=== PATIENT | female | born 1985 | race Caucasian/White ===

== ENCOUNTER 2024-12-25 18:36 | Emergency (ER) | payer MEDICAID, OTHER, SELFPAY ==
--- NOTE | ~2024-12-25 | US_ITS ---
CLINICAL HISTORY: LUQ pain, pls eval for splenomegaly Ultrasound abdomen limited Comparison: None Findings: The spleen measures 12.8 cm, slightly enlarged and otherwise appears unremarkable. No free fluid adjacent to the spleen. Left kidney measures 11.9 cm in length. No hydronephrosis. Impression: 1. Mild splenomegaly and otherwise unremarkable left upper quadrant ultrasound. This document has been electronically signed by: Celena Leonard MD on 12/25/2024 22:52:06
[2024-12-25 18:39] VITALS: BP 127/88; PULSE 103; RESP 16; TEMP 36.8; O2SAT 98; BMI 28.0
--- NOTE | 2024-12-25 18:40 | ED_ITS ---
HPI - General Adult General Chief complaint: Allergic Reaction Stated complaint: allergic reaction swollen hand Time Seen by Provider: 12/25/24 20:50 History of Present Illness ED Provider: Samanta MG narrative: The patient is a 39-year-old female who says that 2 days ago she started to have fevers. Her fevers has been quite high. She says as high as 105. Starting yesterday she developed a rash that is quite itchy and which she feels is on her arms and her legs. It is most uncomfortable and itchy on her left forearm. It spares her face. She has no sore throat. She has had no runny nose. She has had no cough. No chest pain or shortness of breath. She has no recent travel history. No sick contacts. The patient also was complaining of left upper quadrant pain that has been bothering her for more than a year. At the time that the pain began she was living in [place]. She had a cholecystectomy which was done to try to address this pain but the pain remains the same despite the cholecystectomy. This seems to be a separate complaint from the fever and itchy rash. The patient grew up in [place]. She says that she did not receive all standard childhood vaccinations because her mother believes a relative who of a vaccination. She says that she has made some effort to catch up on her childhood vaccinations but she does not know exactly which vaccines she has received. Related Data Previous Rx's ?Medication ?Instructions ?Recorded acetaminophen 500 mg capsule 1,000 mg (2 x 500 mg) PO Q8H PRN 12/25/24 fever or pain #14 caps diphenhydramine HCl 25 mg capsule 25 mg PO BEDTIME PRN itching #14 12/25/24 caps ibuprofen 400 mg tablet 400 mg PO Q6H PRN pain #14 t abs 12/25/24 Allergies Allergy/AdvReac Type Severity Reaction Status Date / Time Bleach (Sodium Hypochlorite) Allergy Rash Verified 12/25/24 18:43 Review of Systems 2 Review of Systems: Yes all other systems are reviewed and are negative [facility] Social History Social History Alcohol intake: never Physical Exam ED Vital Signs: Vital Signs - 24 hr 12/25/24 18:39 12/25/24 23:32 Temperature 98.3 F 98.3 F Pulse Rate 103 H 103 H Respiratory Rate 16 16 Blood Pressure 127/88 127/88 Pulse Oximetry 98 98 Oxygen Delivery Method Room Air Room Air BMI result Body Mass Index 28.0 Const Other: The patient is awake, alert, pleasant, cooperative. She does not appear obviously toxic or acutely ill. No shortness of breath. She seemed itchy. Orientation/consciousness: patient oriented x3 HENMT Other: No lesions to the face. The skin of the face is normal. The face is symmetrical. Mucous membranes are moist. There was no enanthem. Posterior pharynx is normal. Eyes Other: Pupils are round equal, conjunctivae are clear, extraocular movements intact. No conjunctival injection. No discharge. General: appearance normal, both eyes and all related structures Neck Other: Neck is supple. No cervical adenopathy appreciated. Resp Effort & Inspection: normal respiratory effort Auscultation: clear to auscultation bilaterally Cardio Rate: regular rate Rhythm: regular rhythm Heart sounds: S1 normal heart sound present and S2 normal heart sound present GI Other: The patient reports some tenderness in the left upper quadrant with palpation. However the abdomen seems quite soft. I do not appreciate any splenomegaly on exam. Back/Spine/Pelvis Other: There is a fine wispy erythematous rash on back. Skin Other: The patient has a diffuse fine wispy erythematous rash on much of the body. This seems most pronounced on the medial aspect of the left forearm. The the rash blanches in all areas. No petechiae. She seems itchy. Neuro Other: The patient's appearance is nontoxic. General: patient oriented x3, gait normal, tone normal, moves all extremities, no focal motor deficits and CN's II-XI intact bilaterally Extrem Other: The patient has a diffuse missed be fine erythematous rash on most of her legs. On her arms she also has a similar rash but it seems more concentrated on the medial aspect of the left forearm. There was no pitting edema. No deformity. She moves all of her joints normally. Course Course Course Narrative: 12/25/241840 HENRI Willis This is a Rapid Medical Examination (RME) performed by Richard Kothari PA-C in triage. Full HPI, ROS, assessment and treatment plan per primary provider in the Main ED. Hx: 39 yo F here w/ fever x2 days, woke up with diffuse puruitic body rash today. TMAX 106F at home. took tylenol around 6 hour ago. no new meds/ abx. no new soaps/ lotions/ detergents. reports allergy to bleach - reports using this two days ago. no sore throat, N/V, abd pain, cough. no recent tick/insect bites. Plan: labs, viral/strep swabs Medications Administered Discontinued Medications Generic Name Dose Route Start Last Admin Trade Name Abel PRN Reason Stop Dose Admin Diphenhydramine HCl 50 mg 12/25/24 23:12 12/25/24 23:27 Diphenhydramine Hcl 25 Mg Capsule PO 12/25/24 23:13 50 mg ONCE ONE Administration Medical Decision Making Medical Decision Making [facility] Narrative: The patient is a 39-year-old female who presents for evaluation of a rash and a fever. The fever has been present for 2 days. The rash has been present for 1 day. She seems quite itchy. There are no associated respiratory symptoms. there are no intraoral lesions. Has what seems to be a separate complaint the patient is complaining of left upper quadrant pain that has been present for over a year. She says that she had a cholecystectomy in hopes of improving this pain but there was no change following the cholecystectomy. The cholecystectomy was done at a hospital in [place]. For the most part her abdomen seems benign. The patient has a white count with a total of 6.1. She has a lymphocytosis with some atypical lymphocytes. Monospot is negative. Viral panels are negative. My overall impression, given the itchiness of the rash, the fever, and her white count and differential, is that the patient has some kind of a viral syndrome with an associated rash. Although the patient has a an uncertain vaccination history I do not think this presentation seems suggestive of measles. She does not seem toxic at all. I think she will be appropriately treated symptomatically. To address her complaint of left upper quadrant tenderness we obtained an ultrasound that does not show any significant splenomegaly or other explanation for her pain. Given how long she has had this pain I do not think further evaluation in the emergency room if necessary today. She has a primary care doctor in the [place] area. She should return if worse. Lab Data 12/25/24 18:54 12/25/24 18:55 Labs: Lab Results 12/25/24 12/25/24 12/25/24 Range/Units 18:54 18:55 21:24 WBC 6.1 (4.8-10.8) X10*3/uL RBC 3.98 L (4.20-5.50) X10*6/uL Hgb 12.9 (12.0-16.0) g/dl Hct 36.0 L (37.0-47.0) % MCV 90.5 (80.0-98.0) fL MCH 32.4 (27.0-33.0) pg MCHC 35.8 H (31.0-35.0) g/dl RDW 11.7 (11.0-16.0) % Plt Count 165 (160-400) X10*3/uL MPV 9.0 L (9.4-12.3) fL Immature Gran % (Auto) Cancelled Neut % (Auto) Cancelled Lymph % (Auto) Cancelled [place] % (Auto) Cancelled Eos % (Auto) Cancelled Baso % (Auto) Cancelled Lymph # (Auto) Cancelled [place] # (Auto) Cancelled Eos # (Auto) Cancelled Baso # (Auto) Cancelled Abs Immat Gran (auto) Cancelled Absolute Neuts (auto) Cancelled Absolute Nucleated RBC 0.000 (0.0-0.012) X10*3/uL Nucleated RBC % (auto) 0.0 (0.0-0.2) /100WBC Neutrophils % (Manual) 20 L (45-73) % Band Neutrophils % 1 L (3-5) % Lymphocytes % (Manual) 59 H (20-40) % Atypical Lymphs % (Man) 8 H (0-6) % Monocytes % (Manual) 6 (2-11) % Eosinophils % (Manual) 5 H (0-4) % Basophils % (Manual) 1 (0-2) % Abs Neuts (Manual) 1.3 L (2.0-8.3) X10*3/uL Lymphocytes # (Manual) 3.6 (1.2-4.9) X10*3/uL Atyp Lymphs # (Manual) 0.5 x10*3/uL Monocytes # (Manual) 0.4 (0.1-1.2) X10*3/uL Eosinophils # (Manual) 0.3 (0.0-0.4) X10*3/uL Basophils # (Manual) 0.1 (0.0-0.2) X10*3/uL Platelet Estimate NORMAL (NORMAL) Plt Morphology Comment NORMAL RBC Morphology NORMAL Smear Tech's Comments MANUAL DIFF Sodium 140 (135-145) mmol/L Potassium 3.9 (3.3-5.1) mmol/L Chloride 106 (96-108) mmol/L Carbon Dioxide 25 (22-29) mmol/L Anion Gap 13 (12-20) BUN 8 L (9-16) mg/dL Creatinine 0.74 (0.5-1.4) mg/dL Estim Creat Clear Calc 105.9 Estimated GFR > 60 Random Glucose 86 (60-115) mg/dL Calcium 8.8 (8.4-10.2) mg/dL Total Bilirubin 0.4 (0.0-1.0) mg/dL AST 32 H (5-31) U/L ALT 28 (0-31) U/L Alkaline Phosphatase 91 (39-117) U/L Total Protein 7.2 (6.5-8.0) g/dL Albumin 4.3 (3.5-5.0) g/dL Beta HCG, Quant < 2 mIU/mL Respiratory Panel [place] See Note Adenovirus (Rapid PCR) Not Detected (Not Detect.) B.pert (TEM-PCR) Not Detected (Not Detect.) B.parapertussis DNA PCR Not Detected (Not Detect.) C. pneumoniae DNA (PCR) Not Detected (Not Detect.) Coronavirus OC43 (PCR) Not Detected (Not Detect.) Coronavirus HKU1 (PCR) Not Detected (Not Detect.) Coronavirus 229E (PCR) Not Detected (Not Detect.) Coronavirus NL63 (PCR) Not Detected (Not Detect.) Monoscreen Negative (Negative) Human Metapneumovir PCR Not Detected (Not Detect.) Influenza A (RT-PCR) Not Detected (Not Detect.) Influenza A (H1) PCR Not Detected (Not Detect.) Influ A (H1/09) PCR Not Detected (Not Detect.) Influenza A (H3) PCR Not Detected (Not Detect.) Influenza Type A (PCR) NEGATIVE (Negative) Influenza B (RT-PCR) Not Detected (Not Detect.) Influenza Type B (PCR) NEGATIVE (Negative) M. pneumoniae (PCR) Not Detected (Not Detect.) Parainfluenza 1 (PCR) Not Detected (Not Detect.) Parainfluenza 2 (PCR) Not Detected (Not Detect.) Parainfluenza 3 (PCR) Not Detected (Not Detect.) Parainfluenza 4 (PCR) Not Detected (Not Detect.) RSV (PCR) Not Detected (Not Detect.) RSV RNA Qual (PCR) NEGATIVE (Negative) Entero/Rhino (PCR) Not Detected (Not Detect.) SARS-CoV-2 RNA (RT-PCR) NEGATIVE Not Detected (Negative) S. pyogenes GrpA DIVYA Negative (Negative) Discharge Plan Discharge Clinical Impression: Fever, Pruritic rash, Acute viral syndrome, Chronic left upper quadrant pain Patient Disposition: Home, Self-Care Additional Instructions: I think that your fever and your itchy rash are caused by some kind of a viral illness. Your blood work is consistent with a viral illness. Antibiotics are helpful for bacterial illnesses but they are not helpful for viral illnesses. I think your fever and the rash will likely get better on their own over the next several days. I have sent prescriptions for acetaminophen (Tylenol), and ibuprofen which you may use as needed for fever. I have sent a prescription for diphenhydramine (Benadryl) which you may use as needed for itchiness. I would use this primarily at night because it can make you sleepy. Prescription has been written to take 25 mg at bedtime but you may double the dose if necessary. I do not have a good explanation for the left upper abdominal pain you has been experiencing for a long time. Your ultrasound does not show any concerning finding and your blood work is also not concerning with regard to this pain. Please contact your regular doctor in [place] tomorrow morning as well. Perhaps you can arrange a follow up appointment or possibly a telemedicine follow up. If you feel significantly worse please return to the emergency room for further evaluation. Prescriptions: New ibuprofen 400 mg tablet 400 mg PO Q6H PRN (Reason: pain) Qty: 14 0RF acetaminophen 500 mg capsule 1,000 mg PO Q8H PRN (Reason: fever or pain) Qty: 14 0RF diphenhydramine HCl 25 mg capsule 25 mg PO BEDTIME PRN (Reason: itching) Qty: 14 0RF Interventions: ED Discharge Assessment Last Done: 12/25/24 23:32 Discharge Date/Time: 12/25/24 23:32 Print Language: Luxembourgish
[2024-12-25 19:03] LABS: Hemoglobin 12.9 g/dl (12.0-16.0); Mean Corpuscular HGB Conc 35.8 g/dl (31.0-35.0); Mean Corpuscular Hemoglobin 32.4 pg (27.0-33.0); Mean Corpuscular Volume 90.5 fL (80.0-98.0); Platelet Count 165 X10*3/uL (160-400); Red Blood Count 3.98 X10*6/uL (4.20-5.50); Red Cell Distribution Width 11.7 % (11.0-16.0); White Blood Count 6.1 X10*3/uL (4.8-10.8)
[2024-12-25 19:08] LABS: IDNOW Serial# 6674DD1D; Strep A Nucleic Acid Negative (Negative)
[2024-12-25 19:17] LABS: Alanine Aminotransferase 28 U/L (0-31); Albumin Level 4.3 g/dL (3.5-5.0); Alkaline Phosphatase 91 U/L (39-117); Anion Gap 13 (12-20); Aspartate Amino Transferase 32 U/L (5-31); Bilirubin Total 0.4 mg/dL (0.0-1.0); Blood Urea Nitrogen 8 mg/dL (9-16); Calcium 8.8 mg/dL (8.4-10.2); Carbon Dioxide 25 mmol/L (22-29); Chloride 106 mmol/L (96-108); Creatinine Clr Calc Pharmacy 105.9; Estimated Glomerular Filt Rate > 60; Glucose Random 86 mg/dL (60-115); Potassium 3.9 mmol/L (3.3-5.1); Sodium 140 mmol/L (135-145); Total Protein 7.2 g/dL (6.5-8.0)
[2024-12-25 19:26] LABS: SLIDE REVIEW MANUAL DIFF
[2024-12-25 19:38] LABS: Atypical Lymph Absolute Manual 0.5 x10*3/uL; Atypical Lymphs Percent Manual 8 % (0-6); Band Neutrophils Percent 1 % (3-5); Basophils Abs Manual 0.1 X10*3/uL (0.0-0.2); Basophils Percent Manual 1 % (0-2); Eosinophils Absolute Manual 0.3 X10*3/uL (0.0-0.4); Eosinophils Percent Manual 5 % (0-4); Lymphocytes Absolute Manual 3.6 X10*3/uL (1.2-4.9); Lymphocytes Percent Manual 59 % (20-40); Monocytes Absolute Manual 0.4 X10*3/uL (0.1-1.2); Monocytes Percent Manual 6 % (2-11); Neutrophils Absolute Manual 1.3 X10*3/uL (2.0-8.3); Neutrophils Percent Manual 20 % (45-73)
[2024-12-25 19:39] LABS: Influenza A PCR NEGATIVE (Negative); Influenza B PCR NEGATIVE (Negative); Platelet Estimate NORMAL (NORMAL); Platelet Morphology Comment NORMAL; RBC Morphology NORMAL; Resp Syncy Virus RNA Qual PCR NEGATIVE (Negative); SARS COV2 PCR INHOUSE NEGATIVE (Negative)
--- NOTE | 2024-12-25 20:04 | PC.NURSE ---
Interviewed patient with county treasurer # [id number]
[2024-12-25 21:38] LABS: HCG Quantitative < 2 mIU/mL
[2024-12-25 21:46] LABS: Monotest Negative (Negative)
[2024-12-25] MEDS: diphenhydrAMINE HCL 25 MG CAPSULE 50 MG PO (23:27)
--- NOTE | 2024-12-25 23:30 | PC.NURSE ---
Took over care from YULIANA Sena, medicated per aug, reviewed discharge instruction per pt pt verbalized understanding, no sign of distress, no hive, no respiratory distress.
[2024-12-25 23:32] VITALS: BP 127/88; PULSE 103; RESP 16; TEMP 36.8; O2SAT 98
[2024-12-26 12:56] LABS: Adenovirus PCR Not Detected (Not Detect.); Bordetella parapertussis PCR Not Detected (Not Detect.); Bordetella pertussis PCR Not Detected (Not Detect.); Chlamydia pneumoniae PCR Not Detected (Not Detect.); Coronavirus 229E PCR Not Detected (Not Detect.); Coronavirus HKU1 PCR Not Detected (Not Detect.); Coronavirus NL63 PCR Not Detected (Not Detect.); Coronavirus OC43 PCR Not Detected (Not Detect.); Human metapneumovirus PCR Not Detected (Not Detect.); Influenza A H1 PCR Not Detected (Not Detect.); Influenza A H1-2009 PCR Not Detected (Not Detect.); Influenza A H3 PCR Not Detected (Not Detect.); Influenza A PCR Not Detected (Not Detect.); Influenza B PCR Not Detected (Not Detect.); Mycoplasma pneumoniae PCR Not Detected (Not Detect.); Parainfluenza 1 PCR Not Detected (Not Detect.); Parainfluenza 2 PCR Not Detected (Not Detect.); Parainfluenza 3 PCR Not Detected (Not Detect.); Parainfluenza 4 PCR Not Detected (Not Detect.); RSV PCR Not Detected (Not Detect.); Rhino/Enterovirus PCR Not Detected (Not Detect.); SARS-CoV-2 PCR Not Detected (Not Detect.)
== END 2024-12-25 23:32 | disposition home or self-care (01) ==
PROVIDERS: Physician Assistant Medical; Emergency Provider Emergency Medicine
DX: R50.9 Fever, unspecified (principal); L29.9 Pruritus, unspecified; B34.9 Viral infection, unspecified; R10.12 Left upper quadrant pain; Z03.818 Encounter for observation for suspected exposure to other biological agents ruled out; Z79.899 Other long term (current) drug therapy
CPT/HCPCS: 0241U; 36415; 76705; 80053; 84702; 85007; 85027; 86308; 87633; 87651; 99284

== ENCOUNTER → 2024-12-25 21:18 | Outpatient (BNV) | payer MEDICAID, SELFPAY | PROVIDERS: Emergency Provider Emergency Medicine; Visit Provider Specialist | DX: R16.1 Splenomegaly, not elsewhere classified (principal) | CPT/HCPCS: 76705 ==

== ENCOUNTER 2024-12-27 14:15 | Emergency (ER) | payer MEDICAID, OTHER, SELFPAY ==
--- OUTSIDE RECORDS SUMMARY | 2024-12-08 06:30 | XMS_ITS | Continuity of Care Document ---
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 Call your doctor if no results in 4 hours. Can normally cause diarrhea as needed - Active or similar sized bottle magnesium citrate oral solution chill entire contents of bottle and then drink slowly over 20 minutes as needed once for constipation. Call your doctor if no results in 4 hours. Can normally cause diarrhea as needed - Active or similar sized bottle omeprazole 20 mg capsule,delayed release take 1 capsule by oral route every day 30 minutes to 1 hour before a meal 20 MG - Active simethicone 125 mg chewable tablet 1 tab PO with food and at bedtime prn bloating - Active ibuprofen 600 mg tablet take 1 tablet by oral route 3 times every day with food prn pain - Active Tylenol Extra Strength 500 mg tablet take 1-2 tablet by oral route every 6 hours as needed for pain - Active Voltaren Arthritis Pain 1 % topical gel apply 2 gram by topical route 4 times every day to the affected area(s) prn pain; do not use at same time as other NSAIDs - Active lidocaine 5 % topical patch apply 1 patch by topical route every day (May wear up to 12hours) prn pain - Active cyclobenzaprine 10 mg tablet take 1 tablet by oral route 3 times every day as needed 10 MG - Active metronidazole 500 mg tablet take 1 tablet by oral route every 12 hours daily for 7 days - Active riboflavin (vitamin B2) 100 mg tablet TAKE 4 TABLETS BY MOUTH DAILY - Active doxycycline hyclate 100 mg capsule take 1 capsule by oral route 2 times every day x 7 days; Rx for expedited partner therapy as well - Active Miralax 17 gram/dose oral powder take (17G) by oral route 1-2 times every day mixed with 8 oz. water, juice, soda, coffee or tea as needed for constipation - Active magnesium 200 mg tablet take 1-2 tablets po nightly for muscle tension - Active cyclobenzaprine 5 mg tablet take 1 tablet po qhs prn muscle pain - Active triamcinolone acetonide 0.1 % topical cream apply by topical route 2 times every day a thin layer to the affected area(s). DO NOT USE FOR MORE THAN 14 DAYS. DO NOT USE ON FACE OR NECK - Active ALLERGY-JESE RIVERA [id number] hydrocortisone 2.5 % topical cream apply by topical route 2 times every day a thin layer to the affected area(s) ON FACE OR NECK. DO NOT USE FOR MORE THAN 14 DAYS IN A ROW - Active ALLERGY-JESE RIVERA [id number] loratadine 10 mg tablet take 1 tablet by oral route every day 10 MG - Active Metamucil 3.4 gram/5.4 gram oral powder Take 1 unit by mouth everyday mix w 8 ounces of juice or water. - Active Lexapro 5 mg tablet take 1 tablet by oral route every day 5 MG - Active Procedures Procedure Date MED NUTRITION, INDIV, SUBSEQ MEDICAL NUTRITION, INDIV, IN OFFICE/OUTPATIENT VISIT, EST OFFICE/OUTPATIENT VISIT, EST OFFICE/OUTPATIENT VISIT, EST OFFICE/OUTPATIENT VISIT, EST OFFICE/OUTPATIENT VISIT, EST OFFICE/OUTPATIENT VISIT, EST OFFICE/OUTPATIENT VISIT, EST OFFICE/OUTPATIENT VISIT, EST OFFICE/OUTPATIENT VISIT, EST Left W/O Being Seen Left W/O Being Seen Obtaining screen pap smear OFFICE/OUTPATIENT VISIT, EST OFFICE/OUTPATIENT VISIT, EST Intraoral-Periapical First Film 023 Limited Oral Evaluation-Problem Focused Bitewing-Single Film Amalgam-Three Surfaces, Primary Or Perma nent Intraoral-Complete Series (Including Bit ewings) Comprehensive Oral Evaluation-New Or Est ablished P OFFICE/OUTPATIENT VISIT, EST OFFICE/OUTPATIENT VISIT, EST Left W/O Being Seen TDAP VACCINE >7 IM HEP A VACCINE, ADULT IM IMMUNIZATION ADMIN HEP B VACCINE, ADULT, IM OFFICE/OUTPATIENT VISIT, NEW IMMUNIZATION ADMIN, EACH ADD Amalgam-Two Surfaces, Primary Or Permane nt Intraoral-Periapical First Film 023 Bitewing-Single Film Limited Oral Evaluation-Problem Focused Advance Directives Directive Yes / No Effective Date File Name No Information Encounters Encounter Description Practice Location Reason(s) For Visit Diagnoses Date Provider Providers Copied on Encounter Darrin Holden [facility], [address] [place] [address] 2,[address], [place], [place], [id number], [place] tel:[phone] [facility] abdominal pain (chief complaint) Epigastric abdominal painLeft sided abdominal painOverweigh tBody mass index [BMI] 27.0-27.9, adult 5 Torchia Carolin. [address] [place], [address], [place]. tel:[phone] [facility], [address], [place], [place], [id number], [place] tel:[phone] [facility] No Information 5 Soto Jayne. [address] [place], [place], [id number], [place]. tel:[phone] [facility], [address], [place], [place], [id number], [place] tel:[phone] [facility] abdominal pain (chief complaint) Left sided abdominal painEpigastri c abdominal painOverweigh tBody mass index [BMI] 27.0-27.9, adult 5 Torchia Carolin. [address] [place], [address], [place]. tel:[phone] OFFICE/OUTPA TIENT VISIT, EST landon [facility], [address], [place], [place], [id number], [place] tel:[phone] [facility] TELE (chief complaint) Left sided abdominal pain 5 Soto Jayne. [address] [place], [place], [id number], [place]. tel:[phone] [facility], [address], [place], [place], [id number], [place] tel:[phone] [facility] No Information 5 Jasper Strong. [address] [place], [place], [id number], [place]. tel:[phone] OFFICE/OUTPA TIENT VISIT, [facility], [address], [place], [place], [id number], [place] tel:[phone] [facility] Stomach pain (chief complaint) Left sided abdominal pain 4 Lis Tae. [address] [place], [place], [id number], [place]. tel:[phone] OFFICE/OUTPA TIENT VISIT, [facility], [address], [place], [place], [address], [place] tel:[phone] [facility] abdominal pain (chief complaint) Epigastric abdominal painSplenomeg boom 4 Dobles Shelbi. [address] [place], [place], [id number], [place]. tel:[phone] OFFICE/OUTPA TIENT VISIT, [facility], [address] [facility] [address], [place], [place], [address], [place] tel:[phone] [facility] ED F/U (chief complaint) LUQ abdominal pain 4 Dobles Shelbi. [address] [place], [place], [id number], [place]. tel:[phone] OFFICE/OUTPA TIENT VISIT, [facility], [address], [place], [place], [address], [place] tel:[phone] [facility] f/u (chief complaint) Pelvic painChlamydia Contraceptive educationChes t wall painLatent tuberculosis 4 Brittany Godoy. [address] [place], [place], [id number], [place]. tel:[phone] OFFICE/OUTPA TIENT VISIT, [facility], [address] [facility] [facility] [address], [place], [place], [address], [place] tel:[phone] [facility] .Chest (chief complaint) Left arm painOveruse injury 4 Maurice Gale. [address] [place], [place], [id number], [place]. tel:[phone] OFFICE/OUTPA TIENT VISIT, [facility], [address], [place], [place], [id number], [place] tel:[phone] [facility] TELE (chief complaint) Pelvic painChlamydia Contraceptive educationVira l gastroenterit isChronic daily headache 4 Brittany Godoy. [address] [place], [place], [id number], [place]. tel:[phone] OFFICE/OUTPA TIENT VISIT, [facility], [address], [place], [place], [address], [place] tel:[phone] [facility] OV (chief complaint) Pelvic painContracep tive educationBact erial vaginosisChla mydia 4 Brittany Godoy. [address] [place], [place], [address], [place]. tel:[phone] OFFICE/OUTPA TIENT VISIT, [facility], [address], [place], [place], [address], [place] tel:[phone] [facility] Tele (chief complaint) Chronic constipationP elvic painChronic daily headacheContr aceptive education 4 Soto Jayne. [address] [place], [place], [id number], [place]. tel:[phone] [facility], [address], [place], [place], [address], [place] tel:[phone] [facility] Proc/trtmt not crd out d/t pt lv bef seen by [facility] prov 4 Brittany Godoy. [address] [place], [place], [id number], [place]. tel:[phone] [facility], [address], [place], [place], [id number], [place] tel:[phone] [facility] OV (chief complaint) Patient left without being seenProc/trtm t not crd out d/t pt lv bef seen by [facility] prov 4 Brittany Browneinne. [address] [place], [place], [id number], [place]. tel:[phone] [facility], [address] [place] [address] 2,[address], [place], [place], [id number], [place] tel:[phone] [facility] No Information 4 Giles Wolfe. [address] [place] [address], [id number], [place]. tel:[phone] OFFICE/OUTPA TIENT VISIT, EST [facility], [address], [place], [place], [id number], [place] tel:[phone] [facility] OV (chief complaint) Pelvic painEncntr for jack spooler tender exam (general) (routine) w/o abn findingsChron ic daily headacheChron ic constipation 4 Soto Jayne. [address] [place], [place], [id number], [place]. tel:[phone] OFFICE/OUTPA TIENT VISIT, EST [facility], [address], [place], [place], [address], [place] tel:[phone] [facility] ed f/u. (chief complaint) Chronic daily headache 4 Brittany Browneinne. [address] [place], [place], [id number], [place]. tel:[phone] [facility], [address], [place], [place], [address], [place] tel:[phone] [facility] Encounter for dental exam and cleaning w/o abnormal findings 3 No Information [facility], [address], [place], [place], [address], [place] tel:[phone] [facility] No Information 3 No Information [facility], [address] [facility] [address], [place], [place], [address], [place] tel:[phone] [facility] Encounter for dental exam and cleaning w/o abnormal findings 3 No Information [facility], [address] [facility] [address], [place], [place], [address], [place] tel:[phone] [facility] Encounter for dental exam and cleaning w/o abnormal findings 3 No Information OFFICE/OUTPA TIENT VISIT, EST [facility], [address] [facility] [address], [place], [place], [address], [place] tel:[phone] [facility] LBT1 (chief complaint) Chronic constipationP ositive QuantiFERON-T B Gold testHivesLTBI (latent tuberculosis infection) 3 [facility]. [address] [place] [address], [id number], . tel:[phone] OFFICE/OUTPA TIENT VISIT, EST [facility], [address] [facility],[address], [place], [place], [address], [place] tel:[phone] [facility] -- pelvic pain (chief complaint) Pelvic painPositive QuantiFERON-T B Gold testChronic constipation 3 No Information [facility], [address] [facility] [address], [place], [place], [id number], [place] tel:[phone] [facility] - positive TB gold (chief complaint) Proc/trtmt not crd out d/t pt lv bef [facility] care provProc/trtm t not crd out d/t pt lv bef seen by [facility] 3 No Information OFFICE/OUTPA TIENT VISIT, NEW Darrin [facility], [address], [place], [place], [address], [place] tel:[phone] [facility] NPP (chief complaint) Encounter to establish careNeed for hepatitis C screening testScreening for deficiency anemiaScreeni for diabetes mellitus (DM)Screening for lipid disordersScre ening for HIV without presence of risk factorsAnxiet Nikki bo insomniaTelep rob health information provider service required 3 No Information landon [facility], [address], [place], [place], [address], tel:[phone] [facility] No Information 3 Kervin Ali. [address] [place], [place], [id number], [place]. tel:[phone] landon [facility], [address], [place], [place], [address], [place] tel:[phone] [facility] No Information 3 Kervin Ali. [address] [place], [place], [id number], [place]. tel:[phone] Family History Family Member Type Diagnosis Age At Onset No Information Immunizations Vaccine Date Status Comments Tdap (Adacel) administered Source: New Im munization Record Hep A (adult) administered Source: New Im munization Record Hep B, adult, 3 dose administered Source: New Immunization Record COVID-19 Pfizer Bivalent 12y+ administered Note: IMM Info from [facility] ; Source: Other Provider Payers Payer name Insurance type Covered alliance party ID Authoriza tion(s) [employer] [facility] [id number] [employer] [facility] [id number] [employer] [facility] [id number] [facility] ZZ [id number] Social History Type Description Quantity Date Captured Comments Alcohol Use Details Unknown Caffeine Use Details Unknown Tobacco Use Status No Information Smoking Status No Information Sex Female Sexual Orientation Straight or heterosexual Chief Complaint And Reason For Visit From encounter dated '12/08/2024 10:30'. abdominal pain (chief complaint) Reason For Referral Reason For Referral No Information Plan Of Treatment Date Type Action Status Goal Lipid panel. Due on due Goal Hepatitis C Screening. Due o n due Goal Unhealthy drug use screening . Due on due Goal Diabetes Screening. Due on A due Goal Mammogram. Due on due Goal Document SOGI Information. D ue on due Goal Influenza vaccine. Due on due Goal Tdap due Goal APE. Due on due Goal Pap/HPV testing. Due on due Goal Mammogram. Due on due Goal Influenza vaccine. Due on due Goal Lipid panel. Due on due Goal APE. Due on due Goal Tdap due Goal Unhealthy drug use screening . Due on due Goal Document SOGI Information. D ue on due Goal Hepatitis C Screening. Due o n due Goal Pap/HPV testing. Due on due Goal Diabetes Screening. Due on A due Goal Tdap due Goal APE. Due on due Goal Lipid panel. Due on due Goal Document SOGI Information. D ue on due Goal Influenza vaccine. Due on due Goal Pap/HPV testing. Due on due Goal Hepatitis C Screening. Due o n due Goal Mammogram. Due on due Goal Unhealthy drug use screening . Due on due Goal Diabetes Screening. Due on A due Goal Tdap due Goal Diabetes Screening. Due on A due Goal APE. Due on due Goal Lipid panel. Due on due Goal Mammogram. Due on due Goal Hepatitis C Screening. Due o n due Goal Unhealthy drug use screening . Due on due Goal Influenza vaccine. Due on due Goal Pap/HPV testing. Due on due Goal Document SOGI Information. D ue on due Goal Diabetes Screening. Due on A due Goal Tdap due Goal Lipid panel. Due on due Goal Unhealthy drug use screening . Due on due Goal Hepatitis C Screening. Due o n due Goal Document SOGI Information. D ue on due Goal APE. Due on due Goal Influenza vaccine. Due on due Goal Pap/HPV testing. Due on due Goal Mammogram. Due on due Goal Unhealthy drug use screening . Due on due Goal APE. Due on due Goal Diabetes Screening. Due on A due Goal Lipid panel. Due on due Goal Influenza vaccine. Due on due Goal Mammogram. Due on due Goal Pap/HPV testing. Due on due Goal Document SOGI Information. D ue on due Goal Tdap due Goal Hepatitis C Screening. Due o n due Goal Lipid panel. Due on due Goal APE. Due on due Goal Pap/HPV testing. Due on due Goal Document SOGI Information. D ue on due Goal Tdap due Goal Diabetes Screening. Due on A due Goal Unhealthy drug use screening . Due on due Goal Influenza vaccine. Due on due Goal Hepatitis C Screening. Due o n due Goal Document SOGI Information. D ue on due Goal Pap/HPV testing. Due on due Goal Tdap due Goal Hepatitis C Screening. Due o n due Goal Lipid panel. Due on due Goal Unhealthy drug use screening . Due on due Goal Influenza vaccine. Due on Ma due Goal APE. Due on due Goal Diabetes Screening. Due on A due Goal Pap/HPV testing. Due on due Goal Unhealthy drug use screening . Due on due Goal Hepatitis C Screening. Due o n due Goal Diabetes Screening. Due on A due Goal APE. Due on due Goal Tdap due Goal Lipid panel. Due on due Goal Influenza vaccine. Due on due Goal Document SOGI Information. D ue on due Goal Influenza vaccine. Due on Al due Goal APE. Due on due Goal Diabetes Screening. Due on A due Goal Tdap due Goal Document SOGI Information. D ue on due Goal Hepatitis C Screening. Due o n due Goal Unhealthy drug use screening . Due on due Goal Pap/HPV testing. Due on due Goal Lipid panel. Due on due Goal Tdap due Goal Unhealthy drug use screening . Due on due Goal Lipid panel. Due on due Goal Hepatitis C Screening. Due o n due Goal Influenza vaccine. Due on due Goal APE. Due on due Goal Document SOGI Information. D ue on due Goal Diabetes Screening. Due on due Goal Pap/HPV testing. Due on due Goal Pap/HPV testing. Due on due Goal Hepatitis C Screening. Due o n due Goal Tdap due Goal Lipid panel. Due on due Goal Diabetes Screening. Due on due Goal APE. Due on due Goal Unhealthy drug use screening . Due on due Goal Influenza vaccine. Due on due Goal Document SOGI Information. D ue on due Goal Document SOGI Information. D ue on due Goal Hepatitis C Screening. Due o n due Goal Pap/HPV testing. Due on due Goal Tdap due Goal Diabetes Screening. Due on due Goal APE. Due on due Goal Unhealthy drug use screening . Due on due Goal Lipid panel. Due on due Goal Influenza vaccine. Due on due Goal Pap/HPV testing. Due on due Goal Unhealthy drug use screening . Due on due Goal Influenza vaccine. Due on due Goal Tdap due Goal Lipid panel. Due on due Goal Document SOGI Information. D ue on due Goal Hepatitis C Screening. Due o n due Goal APE. Due on due Goal Diabetes Screening. Due on A due Goal APE. Due on due Goal Diabetes Screening. Due on A due Goal Unhealthy drug use screening . Due on due Goal Lipid panel. Due on due Goal Tdap due Goal Document SOGI Information. D ue on due Goal Pap/HPV testing. Due on due Goal HPV. Due on due Goal Hepatitis C Screening. Due o n due Goal Influenza vaccine. Due on due Goal Hepatitis C Screening. Due o n due Goal Tdap due Goal Lipid panel. Due on due Goal Document SOGI Information. D ue on due Goal HPV. Due on due Goal Pap/HPV testing. Due on due Goal Influenza vaccine. Due on Se due Goal Unhealthy drug use screening . Due on due Goal Diabetes Screening. Due on A due Goal APE. Due on due Goal Document SOGI Information. D ue on due Goal Pap/HPV testing. Due on due Goal Hepatitis C Screening. Due o n due Goal APE. Due on due Goal Diabetes Screening. Due on A due Goal Lipid panel. Due on due Goal Influenza vaccine. Due on due Goal Tdap due Goal HPV. Due on due Goal Unhealthy drug use screening . Due on due Goal Pap/HPV testing. Due on due Goal HPV. Due on due Goal Lipid panel. Due on due Goal Hepatitis C Screening. Due o n due Goal APE. Due on due Goal Unhealthy drug use screening . Due on due Goal Diabetes Screening. Due on A due Goal Tdap due Goal Influenza vaccine. Due on due Goal Document SOGI Information. D ue on due Goal Pap/HPV testing. Due on due Goal Influenza vaccine. Due on due Goal Document SOGI Information. D ue on due Goal Unhealthy drug use screening . Due on due Goal APE. Due on due Goal HPV. Due on due Goal Diabetes Screening. Due on A due Goal Tdap due Goal Hepatitis C Screening. Due o n due Goal Lipid panel. Due on due Goal APE. Due on due Goal Unhealthy drug use screening . Due on due Goal Document SOGI Information. D ue on due Goal Tdap due Goal Influenza vaccine. Due on Ap due Goal Pap/HPV testing. Due on due Goal HPV. Due on due Referral Ordered: Referrals: Gastroenterology. Evaluate and treat Appointment date/timeframe: 03/16/2025 ordered Referral Ordered: CT ABDOMEN W/ DYE Appointment date/timeframe: 07/11/2024 ordered Referral Ordered: MAMMOGRAM DIAGNOSTIC, UNILATERL Left Appointment date/timeframe: Routine <3 Months ordered Referral Ordered: US EXAM, BREAST, UNILATERAL OR BILATERAL Left Appointment date/timeframe: Routine <3 Months ordered Referral Ordered: CT ABDOMEN & PELVIS W/O & W/ DYE Appointment date/timeframe: Routine <3 Months ordered Referral Ordered: Referrals: OBGYN Appointment date/timeframe: Routine <3 Months ordered Referral Ordered: Physical Therapy (related to Chronic daily headache) ordered Referral Ordered: Referrals: Gastroenterology Appointment date/timeframe: 03/16/2025 ordered Referral Referred To: Physical Therapy Ordered: Referrals: Physical Therapy Appointment date/timeframe: Elective-Pt Discretion ordered Referral Ordered: US PELVIC COMPLETE, NON-OB Appointment date/timeframe: 09/28/2023 ordered Referral Ordered: Referrals: Allergy Appointment date/timeframe: 03/19/2023 ordered Referral Ordered: CHEST X-RAY AP & LAT 2 VIEWS Appointment date/timeframe: Elective-Pt Discretion ordered Referral Ordered: US TRANSVAGINAL, NON-OB Appointment date/timeframe: Urgent <3 Weeks ordered Appointment ROSALINA ROTH BOOKED History Of Present Illness Encounter Date Complaint History Of Prese nt Illness abdominal pain abdominal pain TELE 37yo femalelangu age [place] Propio ID#[id number]: LTBIs/p lap cholecurrent issues:LLQ worse with sex - TVUS normal, CT A/P normalconstipation - GI referral pendingf/u abd pain: continues to be an issuecurrent meds: none for this, tried mag citrate and didn't help, so stoppedpt is trying to eliminate lactose - eliminating cheese and dairy, has noted a difference in symptoms, improved 50-60%continues to deal with constipation but is improvingalso trying to eliminate glutenhas nutrition f/u scheduledhas not yet heard about GI apptpap 07/29/23: NILM, neg HPV Stomach pain The patient is a 38-year-old female 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 The patient was seen in the emergency department with this complaint and was diagnosed with biliary colic and cholecystitis and underwent a lap cholecystectomy. This however did not change this pain. She has not followed up with the surgeon despite this. She has however followed up in urgent care multiple times it also with her primary care doctor. At the time of her workup her CT scan noted both hepatomegaly and splenomegaly of unclear cause. A repeat CT scan to reassess this was ordered but I can find no evidence that it has been done and when I asked the patient she said in fact no one has called her to arrange it. She has not tried altering her diet to see if she could be lactose or gluten intolerant. She says there is a family history of lactose intolerance. She denies any fever vomiting or other complaints at this time. She recently had a negative H pylori test and her blood work has not shown any significant abnormality. abdominal pain (comments) Commen ts: 38 yo female into clinic with ongoing epigastric and LUQ pain It has been for approx 4 months She was seen in ED [place] and diagnosed with gallstones and then seen here in follow up with fever and increased abdominal pain and sent over to ED She was admitted and had a laparoscopic cholecystectomy She had tele follow up and reported continued abdominal pain She was sent for labs with normal LFTs and CBC She is not taking any medication for pain It is daily intermittent pain described as a brief strong stabbing pain She has had frequent vomiting as well No weight loss No heartburn/reflux No dysphagia She does note frequent bloating On chart review after pt left - CT scan from [facility] with hepatomegaly 22 cm and splenomegaly up to 12.5 cm in addition to gallstones abdominal pain ED F/U 38 yo female wit h ED visit at [facility] on Thursday the for acute onset abdominal pain It is located LUQ She reports eval with labs and CT scan and was told she had a gallbladder infection and that her gallbladder is on her left side She had associated fever and vomiting She was told to f/u with her doctor She continues with pain, fever and vomiting Her pain worsened yesterday and now radiates to left flank area She had a fever earlier today for which she took tylenol f/u 37yo femalelangu age Slovak Propio ID#[id number]: LTBIcurrent issues:headachesLLQ worse with sex - TVUS normalconstipation - GI referral pendingpap 07/29/23: NILM, neg HPVPOSITIVE chlamydia - s/p doxycycline, partner also completed EPT.nu swab positive BV - flagyl? s/p treatmentheadaches come and go but medicine helpingLLQ pain continues, same pain, still hurts with sexhx LTBI, no cough, SOB, coughing up blood, fevers or night sweatstreated in UC for chest wall pain/left arm pain -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
--- NOTE | ~2024-12-27 | XR_ITS ---
EXAMINATION: XR HAND, LEFT CLINICAL INFORMATION: pain, swelling, ram AROM 2nd digit COMPARISON: None available. TECHNIQUE: PA, lateral, and oblique views of the left hand. FINDINGS: The phalanges are intact with normal alignment. The metacarpal bones are intact. The carpal bones are intact with normal alignment. Distal radius and ulna are intact. No subcutaneous emphysema. There is preservation of the joint spaces. No metallic or radiopaque foreign body. XR/XR hand LT min 3V IMPRESSION: No acute fracture or dislocation. Electronically signed by: Jasbir Heredia MD 12/27/2024 03:30 PM EDT
[2024-12-27 14:39] VITALS: BP 119/80; PULSE 98; RESP 16; TEMP 36.6; O2SAT 98; BMI 28.6
--- NOTE | 2024-12-27 14:40 | ED_ITS ---
HPI - General Adult General Chief complaint: General Medical Stated complaint: Swollen L Hand Told to Come Back Time Seen by Provider: 12/27/24 16:21 Source: patient and full time staff interpreter Mode of arrival: ambulatory Limitations: no limitations History of Present Illness ED Provider: Xochilt Gutierrez PA-C HPI narrative: 39-year-old Azerbaijani Guamanian speaking female accompanied by her without significant medical history presents today due to 3 days of left hand swelling. patient states she is right-hand dominant, swelling is worse over the entire left 1st digit, is having difficulty grasping objects due to pain. Denies trauma/injury/fall , recent tick bites, recent travel history. patient reports she was in the department 2 days ago due to fever and rash, states symptoms have improved but swelling has persisted. patient states pain is not radiating anywhere, no radicular symptoms. MD complaint: L hand swelling Onset (ago): day(s) (3) Location: upper extremity ( Left hand) Radiation: non-radiation Severity: mild Quality: aching Pain Consistency: constant Relieving factors: none Exacerbating factors: none Associated symptoms: denies other symptoms Treatments prior to arrival: NSAID ( 600 mg ibuprofen while in the department) Related Data Previous Rx's ?Medication ?Instructions ?Recorded acetaminophen 500 mg capsule 1,000 mg (2 x 500 mg) PO Q8H PRN 12/25/24 fever or pain #14 caps diphenhydramine HCl 25 mg capsule 25 mg PO BEDTIME PRN itching #14 12/25/24 caps ibuprofen 400 mg tablet 400 mg PO Q6H PRN pain #14 t abs 12/25/24 acetaminophen 500 mg capsule 1,000 mg (2 x 500 mg) PO .q8 PRN 12/27/24 fever or pain #30 caps ibuprofen 600 mg tablet 600 mg PO Q8H PRN fever or p ain 12/27/24 #30 tabs prednisone 20 mg tablet 60 mg (3 x 20 mg) PO DAILY 5 days 12/27/24 #15 tabs Allergies Allergy/AdvReac Type Severity Reaction Status Date / Time Bleach (Sodium Hypochlorite) Allergy Rash Verified 12/27/24 14:45 Review of Systems 2 Review of Systems: CONST: Negative for fever, body aches and chills. HENT: Negative for neck pain/stiffness, headache, congestion, sore throat, swelling. EYES: Negative for discharge/pain or vision changes. RESP: Negative for cough/hemoptysis and shortness of breath. CV: Negative chest pain, difficulty breathing, palpitations. ABD: Negative pain, nausea, vomiting. : Negative increase frequency, dysuria, blood in urine or stool. MUSC: Negative for muscle aches, edema. POS L 1st digit swelling SKIN: Negative rash, lesions/sores. NEURO: Negative headache, dizziness, weakness. Yes all other systems are reviewed and are negative [facility] Past Medical History Attestation statement: The following information was validated with the patient. Source: old records reviewed and nursing notes reviewed Social History Social History Alcohol intake: never Smoked in Last 30 Days: No Use of substances other than those prescribed or required for medical reasons: No Advance Directives: No Advance Directives Information Provided: No Do you have a plan to hurt others: No Plan Patient : No Physical Exam ED Vital Signs: Vital Signs - 24 hr 12/27/24 17:41 12/27/24 20:12 12/27/24 20:28 Temperature 98.1 F 98.7 F 98.7 F Pulse Rate 93 93 93 Respiratory Rate 16 18 18 Blood Pressure 118/76 122/91 H 122/91 H Pulse Oximetry 99 96 96 Oxygen Delivery Method Room Air Room Air Room Air BMI result Body Mass Index 28.6 GENERAL APPEARANCE: ?AxOx4, generally well-appearing, no acute distress. HEENT: ?NC, AT. MMM. EOMI, clear conjunctiva, oropharynx clear. HEART:? Normal rate and regular rhythm, normal S1/S1, no m/r/g LUNGS:? CTAB, moving air well. No crackles or wheezes are heard. EXTREMITIES: left hand with mild edema of the 1st digit Including DIP PIP and MCP, restricted range of motion due to pain. But patient able to move finger. no erythema, no warmth, no puncture wounds, no broken skin, no drainage, radial pulses 2+, appropriate capillary refill, sensation is intact. NEUROLOGICAL: ?Grossly nonfocal. Alert and oriented, moving all 4 extremities. Observed to ambulate with normal gait. Skin: ?Warm and dry without any rash. Course Course Course Narrative: This is an RME performed by Adryan Toth CNP: Additional HPI, ROS, PE not included below will be deferred to primary provider. patient is a female who presents emergency department for evaluation. She reports that she was seen in the emergency department 2 days ago for an allergy had a rash and was having fevers as well as swelling to her bilateral hands. She states that the rash and fever has subsided. However she continues to have severe pain and swelling to the bilateral hands recording her left to be worse than the right. Feels she can not move her index finger. Denies over injury. She has taken Tylenol without. She was given a prescription last visit for ibuprofen, however she has not taken this, no OTC NSAIDs. plan: XR left hand, ibuprofen Reevaluation(s) Reevaluation #1: 8:08 PM 12/27/2024 (Richard ÁLVAREZ): Patient was signed out with his provider at shift change. In summary the patient is a 39-year-old female presenting to the ED for evaluation of left hand swelling and pain primarily of the 2nd MCP and flexor surface of the 2nd digit. The patient was seen here 2 days ago for a diffuse body rash with fever, diagnosed as viral exanthem, patient was treated with Benadryl, ibuprofen, and Tylenol. Patient reports she has been continuing Benadryl each night. Patient reports diffuse body rash has resolved however she has developed subsequent pain, tenderness, and painful active and passive range of motion with full extension of the left 2nd digit. The patient denies any recent injury, denies associated recurrent fever. The patient denies associated nausea, vomiting, chest pain, shortness of breath, abdominal pain, recent insect bite, or other systemic complaint. Today the patient underwent hand x-ray which was unremarkable, patient was treated with 40 mg prednisone. Patient was signed out pending laboratory evaluation and repeat assessment. Upon reassessment the patient reports since taking the prednisone her symptoms have improved. Reassessment reveals no erythema, sausage like swelling, impaired flexion, or evidence of infectious process, including no fluctuance or induration. Laboratory evaluation shows no leukocytosis or left shift, there is elevated ESR and CRP consistent with inflammatory process. The patient may be suffering from a post viral arthralgia, based on the patient's pictures of her rash there is particular concern for possible rubella infection with post viral arthralgia, per sign-out the patient states she comes from [place], is up-to-date on most of her vaccinations but can not say which 1 she has not received. At this time there is no evidence of acute flexor tenosynovitis or other deep space infection. Patient case discussed with attending physician Dr. Baker. Patient will be discharged with outpatient hand follow-up and a 5 day course of prednisone. The patient has been educated at length reasons to return to the ED including but not limited to recurrent fever, erythema, inability to move finger, or other worsening symptoms. Medications Administered Discontinued Medications Generic Name Dose Route Start Last Admin Trade Name Abel PRN Reason Stop Dose Admin Ibuprofen 600 mg 12/27/24 14:46 12/27/24 14:49 Ibuprofen 600 Mg Tablet PO 12/27/24 14:47 600 mg ONCE ONE Administration Prednisone 40 mg 12/27/24 16:51 12/27/24 17:32 Prednisone 20 Mg Tablet PO 12/27/24 16:52 40 mg ONCE ONE Administration Medical Decision Making Medical Decision Making MDM Narrative: 39-year-old [place] Gu[place]ian speaking female accompanied by her without significant medical history presents today due to 3 days of left hand swelling. patient states she is right-hand dominant, swelling is worse over the entire left 1st digit, is having difficulty grasping objects due to pain. Denies trauma/injury/fall , recent tick bites, recent travel history. 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 patient reports she was in the department 2 days ago due to fever and rash, states symptoms have improved but swelling has persisted. patient states pain is not radiating anywhere, no radicular symptoms. vital signs stable, patient afebrile, in no acute distress, nontoxic appearing. Left hand with mild edema of the 1st digit Including DIP PIP and MCP, restricted range of motion due to pain. But patient able to move finger. no erythema, no warmth, no puncture wounds, no broken skin, no drainage, radial pulses 2+, appropriate capillary refill, sensation is intact , compartments soft. X-ray without fracture or dislocation. dosed with 600 mg ibuprofen while in department. We will medicate with 40 mg prednisone to address swelling. Will obtain labs for infectious etiology, and reach out to orthopedics for possible flexor tenosynovitis. Differential Diagnosis Differential Diagnoses: The differential diagnosis associated with the presentation includes stenosing tenosynovitis Flexor tenosynovitis Finger fracture Compartment syndrome Lab Data 12/27/24 17:36 12/27/24 17:36 Labs: Lab Results 12/27/24 Range/Units 17:36 WBC 5.8 (4.8-10.8) X10*3/uL RBC 3.63 L (4.20-5.50) X10*6/uL Hgb 12.1 (12.0-16.0) g/dl Hct 32.8 L (37.0-47.0) % MCV 90.4 (80.0-98.0) fL MCH 33.3 H (27.0-33.0) pg MCHC 36.9 H (31.0-35.0) g/dl RDW 11.8 (11.0-16.0) % Plt Count 213 D (160-400) X10*3/uL MPV 8.8 L (9.4-12.3) fL Immature Gran % (Auto) 0.5 H (0.0-0.4) % Neut % (Auto) 58.2 (45-73) % Lymph % (Auto) 33.0 (20-40) % Stone % (Auto) 5.5 (2-11) % Eos % (Auto) 2.1 (0-4) % Baso % (Auto) 0.7 (0-2) % Lymph # (Auto) 1.9 (1.2-4.9) X10*3/uL Stone # (Auto) 0.3 (0.1-1.2) X10*3/uL Eos # (Auto) 0.1 (0.0-0.4) X10*3/uL Baso # (Auto) 0.0 (0.0-0.2) X10*3/uL Abs Immat Gran (auto) 0.03 (0.00-0.03) X10*3/uL Absolute Neuts (auto) 3.4 (2.0-8.3) x10*3/uL Absolute Nucleated RBC 0.000 (0.0-0.012) X10*3/uL Nucleated RBC % (auto) 0.0 (0.0-0.2) /100WBC ESR 27 H (0-20) MM/HR Sodium 139 (135-145) mmol/L Potassium 3.8 (3.3-5.1) mmol/L Chloride 106 (96-108) mmol/L Carbon Dioxide 25 (22-29) mmol/L Anion Gap 12 (12-20) BUN 7 L (9-16) mg/dL Creatinine 0.61 (0.5-1.4) mg/dL Estim Creat Clear Calc 122.7 Estimated GFR > 60 Random Glucose 85 (60-115) mg/dL Calcium 9.0 (8.4-10.2) mg/dL Total Bilirubin 0.4 (0.0-1.0) mg/dL AST 32 H (5-31) U/L ALT 33 H (0-31) U/L Alkaline Phosphatase 85 (39-117) U/L C-Reactive Protein 2.26 H (< or = 0.50) mg/dL Total Protein 6.9 (6.5-8.0) g/dL Albumin 4.1 (3.5-5.0) g/dL Discharge Plan Discharge Clinical Impression: Arthralgia Patient Disposition: Home, Self-Care Instructions: Rubella (ED), Arthralgia (ED) Additional Instructions: Obrigado por escolher o [facility] para o seu atendimento hoje. Felizmente, neste momento, n?o h? evid?ncias de um processo bacteriano/infeccioso brayan que exija interna??o hospitalar, interven??o cir?rgica imediata ou observa??o cont?nua no pronto-mitch, e ? seguro receber kourtney para casa. A causa exata da sua yariel giles articula??es hoje n?o est? totalmente dimple. No entanto, dado o seu hist?rico de erup??o cut?odalys com febre h? 2 phillips, seguida de yariel giles articula??es hoje, ? poss?eric que a sua yariel seja galdino artralgia p?s- viral, possivelmente de galdino infec??o por rub?ana, com base giles imagens da sua erup??o cut?odalys de 2 phillips atr?s. Independentemente do v?caridad que causa a yariel giles articula??es, n?o h? indica??o para antibi?ticos e os seus sintomas devem melhorar com o tempo e com medicamentos anti-inflamat?phoenix. A sua yariel giles articula??es hoje melhorou ap?s o tratamento com esteroides. Por favor, tome prednisona 60 mg galdino vez ao oly pelos pr?ximos 5 phillips. Voc? pode manny doses alternadas (escalonadas) de ibuprofeno 600 mg e Tylenol 1000 mg a cada 4 horas, conforme necess?laura, para qualquer yariel adicional. Por favor, descanse a ?marisela lesionada e aplique betito por 20 minutos a cada hora. Mantenha-se bem hidratado e descanse bastante. Consulte seu m?dico de aten??o prim?shaka para reavalia??o, controle adicional dos seus sintomas e cuidados preventivos cont?nuos. Consulte tamb?m nosso especialista em m?os, Dr. Sims, para reavalia??o e investiga??o adicional da causa dos seus sintomas. Se voc? n?o tiver um m?dico de aten??o prim?shaka, ligue para o [facility] no n?jah [phone] para indicar um sang m?dico de aten??o prim?shaka. Enquanto aguarda a indica??o do seu sang m?dico de aten??o prim?shaka, voc? pode ligar para nossa [facility] Atend[facility] no n?jah [phone] para necessidades n?o emergenciais. Retorne ao pronto-mitch se apresentar galdino mudan?a grave ou repentina nos seus sintomas, febre acima de 38,8?C que n?o melhora com Tylenol ou ibuprofeno, v?mitos recorrentes ou quaisquer outros sintomas ou preocupa??es novos ou que piorem. Thank you for choosing [facility]'s Emergency Department for your care today. Thankfully at this time there is no evidence of an acute bacterial/infectious process requiring admission to the hospital, immediate surgical intervention or continued ED observation, and it is safe to discharge you home. The exact cause of your joint pain today is not entirely clear. However given your history of a rash with fever 2 days ago followed by joint pain today, it is possible your pain is a post viral arthralgia, possibly from a rubella infection based on the pictures of your rash 2 days ago. Regardless of the virus causing the joint pain, there is no indication for antibiotics and your symptoms should improve with time and anti-inflammatory medication. Your joint pain today improved following treatment with steroids. Please take prednisone 60 mg once daily for the next 5 days. You may take alternating (staggered) doses of ibuprofen 600mg and Tylenol 1000mg every 4 hours as needed for any additional pain. Please rest the injured area, and apply ice for 20 minutes every hour. Please stay well hydrated and get plenty of rest. Please follow up with your primary care physician for re-evaluation, additional management of your symptoms, and continued preventative care. Please also follow-up with our hand specialist Dr. Sims for re-evaluation and additional investigation to the cause of your symptoms. If you do not have a primary care physician, please call the [facility] at [phone] to establish a new primary care physician. While waiting to establish your new primary care physician, you can call our Walk[facility]in [facility] at [phone] for non-emergency needs. Please return to the emergency department if you develop a severe or sudden change in your symptoms, a fever over 100.4 that does not improve with Tylenol or Ibuprofen, recurrent vomiting, or any other new or worsening symptoms or concerns. Prescriptions: New ibuprofen 600 mg tablet 600 mg PO Q8H PRN (Reason: fever or pain) Qty: 30 0RF acetaminophen 500 mg capsule 1,000 mg PO .q8 PRN (Reason: fever or pain) Qty: 30 0RF prednisone 20 mg tablet 60 mg PO DAILY 5 Days Qty: 15 0RF No Action ibuprofen 400 mg tablet 400 mg PO Q6H PRN (Reason: pain) Qty: 14 0RF acetaminophen 500 mg capsule 1,000 mg PO Q8H PRN (Reason: fever or pain) Qty: 14 0RF diphenhydramine HCl 25 mg capsule 25 mg PO BEDTIME PRN (Reason: itching) Qty: 14 0RF Referrals: Kenyatta Sims MD [Physician, Hand Surgery] Clinical Impression: Arthralgia Physician,Unknown J [Primary Care Provider, Medical] Interventions: ED Discharge Assessment Last Done: 12/27/24 20:28 Discharge Date/Time: 12/27/24 20:34 Print Language: Guamanian
--- OUTSIDE RECORDS SUMMARY | 2024-12-27 16:27 | XMS_ITS | Encounter Summary ---
Author Organization [facility] Address [address] [place] [address] Care Team Providers Care Centerless Grinding Machine Adjuster Name Role Phone Jayne Soto MD Primary Care Provider [phone] Encounter Details Date Type Department Care Team (Late st Contact Info) Description 02/11/2023 Community Orders [facility] EpicCare Link [address] [place] [address] Dwight Lucio MD [address] [place] [address] Hives (Primary Dx) Social History Tobacco Use Types Packs/Day Years Used Date Smoking Tobacco: Never Smokeless Tobacco: Never Alcohol Use Standard Drinks/Week Comments No 0 (1 standard drink = 0.6 oz pur e alcohol) Comments No Sex and Gender Information Value Date Recorded Sex Assigned at Female 05/03/2022 3:51 PM EDT Legal Sex Female 7:01 PM EDT Gender Identity Female 05/03/2022 3:51 PM EDT Sexual Orientation Straight 05/03/2022 3: 51 PM EDT documented as of this encounter Plan of Treatment Upcoming Encounters Date Type Department Care Team (Late st Contact Info) Description 03/16/2025 9:00 AM EDT Office Visit [facility] [address] [place] [address] [id number] Picking Tech: Zuly Raza Do, PA [address] [place] [address] documented as of this encounter Visit Diagnoses Diagnosis Hives- Primary Unspecified urticaria documented in this encounter Care Teams Centerless Grinding Machine Adjuster Relationship Specialty Start Date End Date Jayne Soto MD PCP - General Family Medicine 08/04/24 documented as of this encounter
--- NOTE | 2024-12-27 17:37 | PC.NURSE ---
patient medicated per provider order. labs obtained/sent to lab. plan of care ongoing.
[2024-12-27 17:41] VITALS: BP 118/76; PULSE 93; RESP 16; TEMP 36.7; O2SAT 99
[2024-12-27 17:47] LABS: MANUAL DIFF FLAG NO
[2024-12-27 17:48] LABS: Hematocrit 32.8 % (37.0-47.0); Hemoglobin 12.1 g/dl (12.0-16.0); Imm Gran Abs Auto 0.03 X10*3/uL (0.00-0.03); Imm Gran Pct Auto 0.5 % (0.0-0.4); Lymphocytes Absolute Auto 1.9 X10*3/uL (1.2-4.9); Mean Corpuscular HGB Conc 36.9 g/dl (31.0-35.0); Mean Corpuscular Hemoglobin 33.3 pg (27.0-33.0); Mean Corpuscular Volume 90.4 fL (80.0-98.0); NRBC Abs Auto 0.000 X10*3/uL (0.0-0.012); NRBC Pct Auto 0.0 /100WBC (0.0-0.2); Platelet Count 213 X10*3/uL (160-400); Red Blood Count 3.63 X10*6/uL (4.20-5.50); White Blood Count 5.8 X10*3/uL (4.8-10.8)
[2024-12-27 18:01] LABS: Alanine Aminotransferase 33 U/L (0-31); Albumin Level 4.1 g/dL (3.5-5.0); Alkaline Phosphatase 85 U/L (39-117); Anion Gap 12 (12-20); Aspartate Amino Transferase 32 U/L (5-31); Blood Urea Nitrogen 7 mg/dL (9-16); Calcium 9.0 mg/dL (8.4-10.2); Carbon Dioxide 25 mmol/L (22-29); Chloride 106 mmol/L (96-108); Creatinine Clr Calc Pharmacy 122.7; Estimated Glomerular Filt Rate > 60; Potassium 3.8 mmol/L (3.3-5.1); Sodium 139 mmol/L (135-145); Total Protein 6.9 g/dL (6.5-8.0)
[2024-12-27 20:12] VITALS: BP 122/91; PULSE 93; RESP 18; TEMP 37.1; O2SAT 96
[2024-12-27 20:28] VITALS: BP 122/91; PULSE 93; RESP 18; TEMP 37.1; O2SAT 96
== END 2024-12-27 20:34 | disposition home or self-care (01) ==
PROVIDERS: Emergency Provider Emergency Medicine Emergency Medical Services
DX: M25.542 Pain in joints of left hand (principal); R60.0 Localized edema; Z79.899 Other long term (current) drug therapy
CPT/HCPCS: 36415; 73130; 80053; 85025; 85652; 86140; 99283; 99284

== ENCOUNTER → 2024-12-27 14:48 | Outpatient (BNV) | payer MEDICAID, SELFPAY | PROVIDERS: Visit Provider Radiology Diagnostic Radiology | DX: R22.32 Localized swelling, mass and lump, left upper limb (principal) | CPT/HCPCS: 73130 ==

== ENCOUNTER 2025-01-04 14:31 | Outpatient (AMB) | payer SELFPAY ==
--- OUTSIDE RECORDS SUMMARY | 2024-12-08 06:30 | XMS_ITS | Continuity of Care Document ---
Author Organization Darrin Kan [facility] Address [address] [place] [address] Phone Care Team Providers Care Vector Control Specialist Name Role Phone Carolin Hunter RD Unavailable [...] FACE OR NECK - Active ALLERGY-JESE RIVERA [id number] hydrocortisone 2.5 % topical cream apply by topical route 2 times every day a thin layer to the affected area(s) ON FACE OR NECK. DO NOT USE FOR MORE THAN 14 DAYS IN A ROW - Active ALLERGY-JESE RIVERA [id number] loratadine 10 mg tablet take 1 tablet [...] Provider Providers Copied on Encounter Darrin Holden [facility], [address] [place] [address] 2,[address], [place], [place], [id number], [place] tel:[phone] [facility] abdominal pain (chief complaint) Epigastric abdominal painLeft sided abdominal painOverweigh tBody mass index [BMI] 27.0-27.9, adult 5 Torchia Carolin. [address] [place], [address], [place]. tel:[phone] [facility], [address] [facility] [address], [place], [place], [id number], [place] tel:[phone] [facility] No Information 5 Soto Jayne. [address] [place], [place], [id number], [place]. tel:[phone] [facility], [address] [facility] [address], [place], [place], [id number], [place] tel:[phone] [facility] abdominal pain (chief complaint) Left sided abdominal painEpigastri c abdominal painOverweigh tBody mass index [BMI] 27.0-27.9, adult 5 Torchia Carolin. [address] [place], [address], [place]. tel:[phone] OFFICE/OUTPA TIENT VISIT, EST landon [facility], [address] [facility] [address], [place], [place], [id number], [place] tel:[phone] [facility] TELE (chief complaint) Left sided abdominal pain 5 Soto Jayne. [address] [place], [place], [id number], [place]. tel:[phone] [facility], [address] [facility] [address], [place], [place], [id number], [place] tel:[phone] [place] 60 Acute Care No Information 5 Jasper Strong. [address] [place], [place], [id number], [place]. tel:[phone] OFFICE/OUTPA TIENT VISIT, [facility], [address], [place], [place], [id number], [place] tel:[phone] [place] 60 Acute Care Stomach pain (chief complaint) Left sided abdominal pain 4 Lis Tae. [address] [place], [place], [id number], [place]. tel:[phone] OFFICE/OUTPA TIENT VISIT, [facility], [address] [facility] [address], [place], [place], [id number], [place] tel:[phone] [facility] abdominal pain (chief complaint) Epigastric abdominal painSplenomeg boom 4 Dobles Shelbi. [address] [place], [place], [id number], [place]. tel:[phone] OFFICE/OUTPA TIENT VISIT, [facility], [address] [facility] [address], [place], [place], [id number], [place] tel:[phone] [place] 60 Acute Care ED F/U (chief complaint) LUQ abdominal pain 4 Dobles Shelbi. [address] [place], [place], [id number], [place]. tel:[phone] OFFICE/OUTPA TIENT VISIT, [facility], [address] [facility] [address], [place], [place], [id number], [place] tel:[phone] [facility] f/u (chief complaint) Pelvic painChlamydia Contraceptive educationChes t wall painLatent tuberculosis 4 Brittany Godoy. [address] [place], [place], [id number], [place]. tel:[phone] OFFICE/OUTPA TIENT VISIT, [facility], [address] [facility] [address], [place], [place], [id number], [place] tel:[phone] [place] 605 Acute Care .Chest (chief complaint) Left arm painOveruse injury 4 Maurice Gale. [address] [place], [place], [id number], [place]. tel:[phone] OFFICE/OUTPA TIENT VISIT, [facility], [address] [facility] [address], [place], [place], [id number], [place] tel:[phone] [facility] TELE (chief complaint) Pelvic painChlamydia Contraceptive educationVira l gastroenterit isChronic daily headache 4 Brittany Godoy. [address] [place], [place], [id number], [place]. tel:[phone] OFFICE/OUTPA TIENT VISIT, [facility], [address] [facility] [address], [place], [place], [id number], [place] tel:[phone] [facility] OV (chief complaint) Pelvic painContracep tive educationBact erial vaginosisChla mydia 4 Brittany Godoy. [address] [place], [place], [id number], [place]. tel:[phone] OFFICE/OUTPA TIENT VISIT, [facility], [address] [facility] [address], [place], [place], [id number], [place] tel:[phone] [facility] Tele (chief complaint) Chronic constipationP elvic painChronic daily headacheContr aceptive education 4 Soto Jayne. [address] [place], [place], [id number], [place]. tel:[phone] [facility], [address] [facility] [address], [place], [place], [id number], [place] tel:[phone] [facility] Proc/trtmt not crd out d/t pt lv bef seen by [facility] 4 Brittany Godoy. [address] [place], [place], [id number], [place]. tel:[phone] [facility], [address] [facility] [address], [place], [place], [id number], [place] tel:[phone] [facility] OV (chief complaint) Patient left without being seenProc/trtm t not crd out d/t pt lv bef seen by [facility] 4 Brittany Browneinne. [address] [place], [place], [id number], [place]. tel:[phone] [facility], [address] [place] [address] 2,[address], [place], [place], [id number], [place] tel:[phone] [facility] No Information 4 Giles Wolfe. [address] [place] [address], [id number], [place]. tel:[phone] OFFICE/OUTPA TIENT VISIT, EST [facility], [address] [facility] [address], [place], [place], [id number], [place] tel:[phone] [facility] OV (chief complaint) Pelvic painEncntr for metal burrer exam (general) (routine) w/o abn findingsChron ic daily headacheChron ic constipation 4 Soto Jayne. [address] [place], [place], [id number], [place]. tel:[phone] OFFICE/OUTPA TIENT VISIT, EST [facility], [address] [facility] [address], [place], [place], [id number], [place] tel:[phone] [facility] ed f/u. (chief complaint) Chronic daily headache 4 Brittany Browneinne. [address] [place], [place], [id number], [place]. tel:[phone] [facility], [address] [facility] [address], [place], [place], [id number], [place] tel:[phone] [facility] Encounter for dental exam and cleaning w/o abnormal findings 3 No Information [facility], [address] [facility] [address], [place], [place], [id number], [place] tel:[phone] [facility] No Information 3 No Information [facility], [address] [facility] [address], [place], [place], [id number], [place] tel:[phone] [facility] Encounter for dental exam and cleaning w/o abnormal findings 3 No Information [facility], [address] [facility] [address], [place], [place], [id number], [place] tel:[phone] [facility] Encounter for dental exam and cleaning w/o abnormal findings 3 No Information OFFICE/OUTPA TIENT VISIT, EST [facility], [address] [facility] [address], [place], [place], [id number], [place] tel:[phone] [facility] LBT1 (chief complaint) Chronic constipationP ositive QuantiFERON-T B Gold testHivesLTBI (latent tuberculosis infection) 3 [facility]. [address] [place] [address], [id number], . tel:[phone] OFFICE/OUTPA TIENT VISIT, EST [facility], [address] [facility],[address], [place], [place], [id number], [place] tel:[phone] [facility] -- pelvic pain (chief complaint) Pelvic painPositive QuantiFERON-T B Gold testChronic constipation 3 No Information [facility], [address] [facility] [address], [place], [place], [id number], [place] tel:[phone] Tele [facility] - positive TB gold (chief complaint) Proc/trtmt not crd out d/t pt lv [facility] care provProc/trtm t not crd out d/t pt lv bef [facility] by [facility] 3 No Information OFFICE/OUTPA TIENT VISIT, NEW Darrin [facility], [address] [facility] [address], [place], [place], [id number], [place] tel:[phone] [facility] NPP (chief complaint) Encounter to establish careNeed for hepatitis C screening testScreening for deficiency anemiaScreeni for diabetes mellitus (DM)Screening for lipid disordersScre ening for HIV without presence of risk factorsAnxiet Nikki bo insomniaTelep rob bilingual speech language pathologist service required 3 No Information landon [facility], [address] [facility] [address], [place], [place], [address], tel:[phone] [facility] No Information 3 Kervni Ali. [address] [place], [place], [id number], [place]. tel:[phone] landon [facility], [address] [facility] [address], [place], [place], [address], [place] tel:[phone] [facility] No Information 3 Kervin Ali. [address] [place], [place], [id number], [place]. tel:[phone] Family History Family Member Type Diagnosis Age At Onset No Information Immunizations Vaccine Date Status Comments Tdap (Adacel) administered Source: New Im munization Record Hep A (adult) administered Source: New Im munization Record Hep B, adult, 3 dose administered Source: New Immunization Record COVID-19 Pfizer Bivalent 12y+ administered Note: IMM Info from [facility] ; Source: Other Provider Payers Payer name Insurance type Covered libertarian ID Authoriza tion(s) [employer] [facility] [id number] [employer] [facility] [id number] [employer] [facility] [id number] [facility] [id number] Social History Type Description Quantity Date Captured Comments Alcohol Use Details Unknown Caffeine Use Details Unknown Tobacco Use Status No Information Smoking Status No Information Sex Female Chief Complaint And Reason For Visit From encounter dated 12/08/2024 10:30'. abdominal pain (chief complaint) Reason For [...] on due Goal Influenza vaccine. Due on In due Goal APE. 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 [id number] who comes in to be seen for [...] after pt left - CT scan from [facility] with hepatomegaly 22 cm and splenomegaly up to 12.5 cm in addition to gallstones abdominal pain ED F/U 38 yo female wit h ED visit at [facility] on Thursday the for acute onset abdominal [...] she took tylenol f/u 37yo femalelangu age Italian Propio ID#[id number]: LTBIcurrent issues:headachesLLQ worse with sex - TVUS [...] not helptaking flexeril, not really helping .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 Right-handed. She did have something similar a few months ago, this time was stronger. She has been using Ibuprofen at home. Denies any injuries/falls/trauma. TELE 37yo femalelangu age Italian Propio ID# [id number] issues:headaches LLQ worse with sex - TVUS? [...] OV 37yo femalehere to Avril/ifeanyi Guerrier ID# [id number] issues:headaches - riboflavin? PT?LLQ worse with sex [...] f/upt IDed by name and DOBPortuguese PI [id number] doing wellHA hasn't gone awaytaking magnesium every [...] female here for paphere with husbandPortuguese ID [id number] Brunopt is feeling well, headaches are a [...] hx of abnormal pap ed f/u. 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 2. Positive TB GoldPositive TB GOLDTaina presents today for a positive TB Gold. The patient was born in [place] and came to the 2014. There is [...] Cancer: at 43 - positive TB gold [facility] # [id number]: David. is a 37 y/o Italian - speaking F, who presents to the clinic today to establish care. She is brand new to [facility]. Acute concerns today include: 1. chest wall [...] the fact that the patient and the Italian internet and e business project manager disagreed on the nature of the pain that the patient reported. The internet and e business project manager requested to transfer the phone to another internet and e business project manager as she did not wish to continue assisting with the visit. Visit was paused to wait for [facility] [place] internet and e business project manager who assisted to complete the visit. Hospital visits: noneSpecialists: nonePast Medical History:Past Surgical History: Past Psychiatric History: Positive anxietyCurrent medications: noneAllergies: No Known AllergiesSocial History:- Tobacco use: Never a smoker- Alcohol use: Not a drinker - Recreational drugs: none - Originally from [place]. 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
--- NOTE | 2025-01-04 14:41 | A.OFFVIS_ITS ---
Vital Signs 01/04/25 14:53 Height 5 ft 4 in Weight 171 lb BMI 29.3 Intake Visit Reasons: ED f/u-LT 1st digit hand swelling Intake Note: Concetta 39 yr old right hand dominant female presents today for a ED follow up visit on 12/27/24 due to 3 days of left hand index finger swelling. Patient states swelling is worse over the entire left 1st digit, she is having difficult y grasping objects due to pain. Seen in ED where it was unclear to why patient had swelling and was prescribed steroids. Denies trauma/injury/fall, recent tick bites, recent travel history. Patient currently states steroids helped but she is still having pa in in her MCP Deneis numbness or tingling. Allergies Bleach (Sodium Hypochlorite) Allergy (Verified 01/04/25 14:51) Rash HPI HPI ED f/u-LT 1st digit hand swelling: Details: Concetta is a 39 year old right hand dominant Stateless speaking woman who presents with complaints of left index finger swelling. She was seen in the ED on 12/25/24 for a high fever and bilateral upper & lower extremity rash, along with hand swelling. ED note reports suspected viral infection based on bloodwork, possible Rubella infection. She was given Tylenol & Benadryl to take at home. She was seen again in the ED on 12/27/24 for worsening hand swelling, particularly of the left index finger. Her fever had resolved by this appointment, but she continued to have difficulty with an itchy rash. Her symptoms have improved with PO Prednisone but she continues to have swelling & limited ROM in her index finger. She complains of limited ROM of her left index finger, along with resolving swelling & pain in her MCP joint. She says she feels limited in the use of her index finger with activities such as gripping. She says she had a high fever, swelling in her bilateral hands, along with a rash to her bilateral arms & legs, since ~12/21/24-12/23/24, she is unsure of the exact date. She says her fever resolved by 12/27/24. She denies any numbness or tingling. She denies any locking or catching. She is from [place], and says she was not vaccinated as a child due to her mother. She has been working on receiving her vaccinations in the last few years, but she is unsure which vaccinations she has received, or are yet to receive. 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 Review of Systems Const All systems reviewed & are unremarkable except as noted in HPI and below Physical Exam Vital Signs: BMI result Body Mass Index 29.3 Const General: cooperative, healthy appearing and no acute distress Orientation/consciousness: patient oriented x3 HEENT Head: Yes normocephalic and Yes atraumatic Eyes EOM: EOMs intact bilaterally Resp Effort & Inspection: normal respiratory effort and able to speak in complete sentences Cardio Jugular venous distension: no JVD Skin General skin exam: turgor normal Rashes: no rashes Neuro General: patient oriented x3 Extrem Other: Evaluation of Left Upper Extremity: The patient is alert, oriented, and in no acute distress Neuro: Median, Ulnar, Radial nerves motor and sensory intact and sensation is normal to the tips of all digits Vascular: Cap refill brisk ROM: She can make a fist and extend all her digits No locking or catching Tender over the index finger a1 vinny & along the flexor tendons of the index finger to the palm Mild Swelling over the a1 vinny area of the index finger Skin: No lacerations or abrasions. Resolving rash to her hands & forearms, including her palms Patient reports this was spread across her body, including to the base of her feet. She reports she still has a rash on her legs and body that is improving General: No Ecchymosis. No Erythema Radiographs: 3 views of the left hand from 12/27/24 were reviewed by me today in clinic. They show no fractures or dislocations. Psych Appearance: grossly normal Affect: normal affect Attitude: cooperative Assessment & Plan Assessment & Plan (1) Swelling of left index finger: Code(s): M79.89 - Other specified soft tissue disorders Category: Medical (2) Rash, skin: Comment: B/L upper & lower extremity Code(s): R21 - Rash and other nonspecific skin eruption Category: Medical Plan Assessment & Plan: 1. Left index finger swelling & pain Swelling & tenderness over the a1 vinny area No locking or catching today in clinic Etiology unclear, symptoms began ~12/23/24 with viral illness that caused a rash across her body including the palms of the hands and feet. Seen in ED 12/25/24 & 12/27/24. [place] are experiencing a [place] outbreak in the country at this time, but the ED appeared to feel this was more consistent with possible rubella infection in his unvaccinated patient. I educated her about this condition She seems to be improving with PO Prednisone and time We will manage this conservatively at this time. We asked her to contact her primary care physician regarding this viral illness and rash. We had spoken with the collar baster across the [place] about this rash, as 1 of our employees has 's that have not yet been vaccinated with MMR. [employer] obviously can not see this patient, and this is why we recommended she be seen by her own primary care physician to learn more about what this rash is and any precautions that she needs to take for herself or the safety of others. In general, we advised her that while she has a rash she should probably limit contact with people outside of her home. She will follow up in 3-4 weeks to see how she is doing with regards to her hand symptoms. ED note was concerned for possible Rubella infection, noted on 12/27/24. We recommend she contact her PCP office to discuss possible further testing & bloodwork to assess for any viral infections. Please note that greater than 40 minutes was spent with this patient going over the history, evaluating the patient and radiographs, formulating possible treatment options, discussing them with the patient, and documenting the visit. Scribed for Kenyatta Sims MD by Abdirizak Fregoso, medical or surgical instrument maker, on 01/04/25 at 3:15 PM, EST. Coding Level of Care Code New Pt Level 4 (60204) Diagnoses Swelling of left index finger M79.89 Rash, skin R21
[2025-01-04 14:53] VITALS: BMI 29.3
== END 2025-01-04 17:16 | disposition home or self-care (01) ==
LOC: HO.HOS 14:32
PROVIDERS: Visit Provider Orthopaedic Surgery
DX: M79.89 Other specified soft tissue disorders (principal); R21 Rash and other nonspecific skin eruption
CPT/HCPCS: 99204

== ENCOUNTER → 2025-01-04 14:31 | Outpatient (BNVA) | payer MEDICAID, SELFPAY | PROVIDERS: Visit Provider Orthopaedic Surgery | DX: R21 Rash and other nonspecific skin eruption (principal); M79.89 Other specified soft tissue disorders | CPT/HCPCS: 99202 ==

== ENCOUNTER → 2025-02-07 13:35 | Outpatient (BNV) | payer SELFPAY | PROVIDERS: Visit Provider Radiology Diagnostic Radiology | DX: M79.642 Pain in left hand (principal) | CPT/HCPCS: 73130 ==

== ENCOUNTER 2025-02-08 | Outpatient (REF) | payer SELFPAY ==
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
--- NOTE | ~2025-02-08 | XR_ITS ---
EXAMINATION: XR HAND, LEFT CLINICAL INFORMATION: M79.642 - Pain in left hand COMPARISON: December 27, 2024 TECHNIQUE: PA, lateral, and oblique views of the left hand. FINDINGS: Metallic bracelet overlapping the distal diaphysis metaphysis of the radius and ulna. The carpal bones are intact. The metacarpal bones are intact. The final images are intact with normal alignment. No bony erosions. No gross joint space narrowing. No subcutaneous emphysema. No lytic or blastic lesions. No gross calcifications in the soft tissues. XR/XR hand LT min 3V IMPRESSION: No acute fracture or dislocation. Negative exam.. Electronically signed by: Jasbir Heredia MD 02/07/2025 03:18 PM EDT
== END 2025-02-08 00:01 | disposition home or self-care (01) ==
LOC: HO.HOSX
PROVIDERS: Visit Provider Orthopaedic Surgery
DX: M79.642 Pain in left hand (principal)
CPT/HCPCS: 73130